=== PATIENT | male | born 1995 | race Asian ===

== ENCOUNTER 2019-08-18 12:14 | Emergency (ER) | payer OTHER ==
[~2019-08-18] VITALS: Ht 165.1 cm; Wt 63.6 kg
[2019-08-18] MEDS ORDERED: EQ A PO (12:19)
[2019-08-18] MEDS ORDERED: MEDR4PAK PO (15:03)
[2019-08-18] MEDS ORDERED: NEUR100C PO (15:03)
[2019-08-18 15:19] VITALS: BP 135/78
== END 2019-08-18 15:20 | disposition home or self-care (01) ==
LOC: M ED 12:14
DX: M54.30 Sciatica, unspecified side (principal); Z87.891 Personal history of nicotine dependence